=== PATIENT | male | born 1955 | race Caucasian/White ===

== ENCOUNTER → 2017-06-22 | Outpatient (CLI) | payer MEDICARE ==
[~2017-06-22] MED LIST: ALLOPURINOL 10100 M1 PO; ASPIRIN EC81 M1 PO; CEFADROXIL 500500 M1 PO; FENOFIBRATE160 MG PO; FISH OIL 1,001000 M2 PO; FUROSEMIDE 80 M80 M1 PO; HYDRALAZINE 2525 MG PO; INDAPAMIDE2.5 MG PO; IRON325 PO; LOVASTATIN 20 M20 MG PO; NEURONTIN 300M300 M2 PO; NORVASC5 MG PO; SYNTHROID50 MCG PO; TRAZODONE HCL50 MG PO; VITAMIN D3400 UNIT PO; XANAX 0.5 MG0.5 MG PO
== END | disposition home or self-care (01) ==
LOC: M.INT 08:04
DX: Z45.2 Encounter for adjustment and management of vascular access device (principal)